=== PATIENT | male | born 1975 ===

== ENCOUNTER 2021-04-17 14:58 | Emergency (ER) | payer OTHER ==
[2021-04-17 16:19] LABS: #Monocytes 0.4 10x3/uL (0.0-1.1); %Monocytes 5.1 % (0.0-10.0); %Neutrophils 85.5 % (40.0-75.0); Hemoglobin 12.9 g/dL (13.5-17.5); Mean Corpuscular HGB CONC 31.5 g/dL (32.0-36.0); Mean Corpuscular Volume 72.9 fl (81.2-95.1); Mean Platelet Volume 9.6 fl (7.4-10.4); Platelet Count 245 10x3/uL (150-450); RBC Distribution Width 13.2 % (11.5-14.5); Red Blood Cell (RBC) Count 5.61 10x6/uL (4.32-5.72)
[2021-04-17 16:46] LABS: ALT (SGPT) 12 U/L (8-55); AST (SGOT) 15 U/L (5-34); Albumin 4.3 g/dL (3.5-5.0); Alkaline Phosphatase 60 U/L (40-110); Anion Gap 14 mmol/L (10-20); BUN (Urea Nitrogen) 14 mg/dL (8.9-20.6); Bilirubin, Total 0.3 mg/dL (0.2-1.2); Calc. Creatinine Clearance 0 mL/min (70-130); Calcium 9.6 mg/dL (7.8-10.44); Carbon Dioxide 18 mmol/L (22-29); Chloride 107 mmol/L (98-107); Globulin 3.6 g/dL (2.4-3.5); Glucose 127 mg/dL (70-105); Potassium 4.1 mmol/L (3.5-5.1); Protein, Total 7.9 g/dL (6.0-8.3); Sodium 135 mmol/L (136-145)
[2021-04-17] MEDS ORDERED: Budesonide 0.5 MG/2 ML NEB ONE (17:29)
[2021-04-17] MEDS ORDERED: Magnesium 2 GM/50 ML BAG (IN WATER) ONE (17:52)
== END 2021-04-17 22:50 | disposition short-term general hospital (02) ==
LOC: EEVIPCON 14:58 → CSHERS 14:58
DX: J45.901 Unspecified asthma with (acute) exacerbation (principal)
CPT/HCPCS: 36415; 71045; 80053; 83880; 84484; 85025; 93005; 94644; 94760; 96365; 96366; J3475; J7620; J7626